=== PATIENT | female | born 1950 | race Caucasian/White ===

== ENCOUNTER 2016-08-08 06:43 | Day surgery (SDC) | payer MEDICARE, OTHER ==
--- NOTE | ~2016-08-08 | EGD ---
EGD REPORT [facility] [address] [place] [id number] NAME: VIANEY LAM : 54 STATUS : REG [facility]#: [id number] AGE: 66 ADM/REG DATE : 08/08/16 MR#: [id number] REPORT SERV DATE: 08/08/16 DICTATED BY: DOMONIQUE STONE DATE: 08/08/16 REPORT STATUS : Draft TRANSCRIBED BY: [employer] DATE: 08/08/16 [facility] Patient Name: Vianey Lam Date of : 1950 Attending MD: DOMONIQUE STONE MD Procedure Date No Time: 08/08/2016 Procedure: Colonoscopy Indications: FH of Colonic Polyps - 1st degree relative, Constipation, Weight loss Referring MD: Yvonne Resendiz Medicines: as per anesthesia Complications: No immediate complications. Procedure: After I obtained informed consent, the scope was passed under direct vision. Throughout the procedure, the patient's blood pressure, pulse, and oxygen saturations were monitored continuously. The PCF [id number] was introduced through the anus and advanced to the cecum, identified by appendiceal orifice and ileocecal valve. The colonoscopy was performed without difficulty. The patient tolerated the procedure. The quality of the bowel preparation was adequate to identify polyps. Findings: The perianal and digital rectal examinations were normal. A sessile polyp was found in the distal sigmoid colon. The polyp was 6 mm in size. The polyp was removed with a jumbo cold forceps. Resection and retrieval were complete. Internal hemorrhoids were found during endoscopy and were mild. Impression: - One 6 mm polyp in the distal sigmoid colon. Resected and retrieved. - Internal hemorrhoids. Recommendation: - Await pathology results. - Repeat colonoscopy for surveillance based on pathology results. Procedure Code(s): --- Professional --- 62941, Colonoscopy, flexible, proximal to splenic flexure; with biopsy, single or multiple Diagnosis Code(s): --- Professional --- D12.5, Benign neoplasm of sigmoid colon K64.8, Other hemorrhoids Z83.71, Family history of colonic polyps EGD REPORT [address] [address] NAME: VIANEY LAM : [birth year] STATUS : REG [facility] [place]#: [id number] AGE: 66 ADM/REG DATE : 08/08/16 MR#: [id number] REPORT SERV DATE: 08/08/16 DICTATED BY: DOMONIQUE STONE. DATE: 08/08/16 REPORT STATUS : Draft TRANSCRIBED BY: [employer] DATE: 08/08/16 K59.00, Constipation, unspecified R63.4, Abnormal weight loss CPT copyright 2013 [employer]. All rights reserved. The codes documented in this report are preliminary and upon applications support engineer review may be revised to meet current compliance requirements. DOMONIQUE STONE MD 08/08/2016 8:59 AM This report has been signed electronically. Number of Addenda: 0 Note Initiated On: 08/08/2016 8:23 AM
[~2016-08-08 06:43] MED LIST: ACET500CAP PO; CELEXA20 PO; MIRALAX POWDER1 PKT PO; MOMUD PO; TAFIN75C PO; VAGIFEM25 MCG V
== END 2016-08-08 23:59 | disposition home or self-care (01) ==
LOC: DMU 06:43
PROVIDERS: Internal Medicine Gastroenterology
PROC: 0DBN8ZX Excision of Sigmoid Colon, Via Natural or Artificial Opening Endoscopic, Diagnostic (ICD-10-PCS; principal; 2016-08-08 08:00)
DX: D12.5 Benign neoplasm of sigmoid colon (principal); K64.8 Other hemorrhoids; F32.9 Major depressive disorder, single episode, unspecified; Z83.71 Family history of colonic polyps; Z90.710 Acquired absence of both cervix and uterus
CPT/HCPCS: 88305